=== PATIENT | male | born 2000 | race African-American/Black ===

== ENCOUNTER 2025-06-14 17:01 | Emergency (ER) | payer SELFPAY ==
[~2025-06-14] VITALS: Ht 177.8 cm; Wt 77.0 kg
[2025-06-14 17:04] VITALS: O2SAT 100
[2025-06-14] MEDS: SODIUM CHLORIDE 0.9% 1,000 ML IV ONE (17:56)
[2025-06-14 19:03] LABS: BASOPHILS % 0.2 % (0.0-2.0); EOSINOPHILS % 3.4 % (0.0-5.0); HEMATOCRIT. 42.0 % (42.0-52.0); HEMOGLOBIN. 13.8 g/dL (14.0-18.0); LYMPHOCYTES % 14.1 % (20.0-50.0); MEAN PLATELET VOLUME 9.2 fl (7.4-10.4); MONOCYTES % 4.6 % (2.0-8.0); NEUTROPHILS % 77.7 % (40.0-76.0); PLATELET 226 x1000/uL (130-400); RED BLOOD CELL COUNT 4.50 mill/uL (4.7-6.1); RED CELL DISTRIBUTION WIDTH 11.7 % (11.6-14.6)
[2025-06-14 19:19] LABS: CREATININE 1.0 mg/dL (0.6-1.3)
[2025-06-14 19:20] LABS: ETHANOL BLOOD < 10 mg/dL (<10); TROPONIN I HIGH SENSITIVITY < 4 ng/L (3.0-53); UREA NITROGEN BLOOD 13 mg/dL (9-23)
[2025-06-14 19:21] LABS: ASPARTATE AMINOTRANSFERASE 33 IU/L (<34)
[2025-06-14 19:22] LABS: BILIRUBIN DIRECT 0.2 mg/dL (<=3.0); BILIRUBIN TOTAL 0.8 mg/dL (0.1-1.0); PROTEIN TOTAL 7.1 g/dL (6.0-8.3)
[2025-06-14 19:59] VITALS: BP 124/72; PULSE 79; RESP 18; TEMP 36.7; O2SAT 100
== END 2025-06-14 20:00 | disposition home or self-care (01) ==
LOC: ER 17:01
DX: R55 Syncope and collapse (principal)
CPT/HCPCS: 80076; 80048; 80320; 83735; 85025; 84484; 36415; 71045; 93005; 96360; 99285; J7030; G0480